=== PATIENT | male | born 1985 | race Caucasian/White ===

== ENCOUNTER 2019-05-16 01:00 | Emergency (ER) | payer BC, SELFPAY ==
[2019-05-16 01:22] LABS: #Eosinphils 0.2 thou/uL (0.0-0.7); #Lymphocytes 4.2 thou/uL (1.20-3.40); #Monocytes 0.5 thou/uL (0.11-0.59); #Neutrophils 3.9 thou/uL (1.40-6.50); %Basophils 0.5 % (0.0-1.0); %Eosinophils 2.3 % (0.0-10.0); %Lymphocytes 47.3 % (21.0-51.0); %Monocytes 5.3 % (0.0-10.0); %Neutrophils 44.7 % (42.0-75.0); Hemoglobin 14.9 g/dL (14.0-18.0); Mean Corpuscular HGB CONC 32.7 g/dL (32.0-36.0); Mean Corpuscular Hemoglobin 28.4 pg (27.0-31.0); Mean Corpuscular Volume 87.1 fL (78.0-98.0); Mean Platelet Volume 11.2 fL (7.4-10.4); Platelet Count 159 thou/uL (130-400); RBC Distribution Width 11.6 % (11.5-14.5); Red Blood Cell (RBC) Count 5.24 mill/uL (4.70-6.10); White Blood Cell (WBC) Count 8.8 thou/uL (4.8-10.8)
[2019-05-16 01:42] LABS: ALT (SGPT) 26 U/L (8-55); AST (SGOT) 20 U/L (5-34); Albumin 4.5 g/dL (3.5-5.0); Alkaline Phosphatase 52 U/L (40-150); Anion Gap 15 mmol/L (10-20); BUN (Urea Nitrogen) 17 mg/dL (8.9-20.6); Bilirubin, Total 0.2 mg/dL (0.2-1.2); Calc. Creatinine Clearance 0 mL/min (70-130); Calcium 9.5 mg/dL (7.8-10.44); Carbon Dioxide 23 mmol/L (22-29); Chloride 104 mmol/L (98-107); Estimated GFR-MDRD 71; Globulin 3.1 g/dL (2.4-3.5); Glucose 133 mg/dL (70-105); Potassium 3.8 mmol/L (3.5-5.1); Protein, Total 7.6 g/dL (6.0-8.3); Sodium 138 mmol/L (136-145)
[2019-05-16] MEDS ORDERED: Acetaminophen 500 MG TAB ONE (02:01)
[2019-05-16] MEDS ORDERED: Ketorolac Tromethamine 30 MG/ML VIAL ONE (02:01)
[2019-05-16 02:15] LABS: Bilirubin Negative (Negative); Blood, Urine Moderate (Negative); Clarity Clear (Clear); Glucose, Urine (Dipstick) Negative (Negative); Leukocyte Negative (Negative); Nitrite Negative (Negative); Protein, Urine (Dipstick) Trace mg/dL (Neg-Trace); Urobilinogen 0.2 mg/dL (Less than 2)
[2019-05-16 02:17] LABS: Bacteria/HPF None Seen HPF (None Seen); Squamous Epithelial 0-3 HPF (0-3); WBC/HPF 0-3 HPF (0-3)
--- NOTE | 2019-05-16 09:01 | CT ---
PRELIMINARY REPORT/[facility]/EMERGENCY AFTER HOURS PROCEDURE: EXAM: CT Abdomen and Pelvis Without Contrast EXAM DATE/TIME: 05/16/2019 1:36 AM CLINICAL HISTORY: 33 years old, male; Abdominal pain; Flank; Right lower quadrant (rlq); Patient HX: Rlq pain x 1 month TECHNIQUE: Imaging protocol: Axial computed tomography images of the abdomen and pelvis without contrast. Alberts l and sagittal reformatted images were created and reviewed. Radiation optimization: All CT scans at this facility use at least one of these dose optimization techniques: automated exposure control; mA and/or kV adjustment per patient size (includes targeted exams where dose is matched to clinical indication); or iterative reconstruction. COMPARISON: No relevant prior studies available. FINDINGS: Liver: Normal. Gallbladder and bile ducts: Normal Pancreas: Normal. Spleen: Normal. Adrenals: Normal. Kidneys and ureters: Right hydronephrosis, with obstructive 4 mm calculus within the right proximal u reter (series 2, image 51). Stomach and bowel: Normal. Appendix: Appendix normal. Intraperitoneal space: Normal. No free air. No significant fluid collection. Vasculature: Phleboliths within the pelvis. Lymph nodes: Normal. No enlarged lymph nodes. Bladder: Unremarkable as visualized. Reproductive: Unremarkable as visualized. Bones/joints: No acute abnormality. Soft tissues: Normal. IMPRESSION: Right hydronephrosis, with obstructive 4 mm calculus within the right proximal ureter (series 2, imag e 51). Thank you for allowing us to participate in the care of your patient. Dictated and Authenticated by: Stepan Yao MD 05/16/2019 3:11 AM Central Time ([place] & [place]) FINAL REPORT ABDOMEN CT WITH CONTRAST PELVIC CT WITH CONTRAST: Date: 05/16/19 HISTORY: Right flank pain, x1 month. Intermittent pain. COMPARISON: None. FINDINGS: Grossly no solid organ abnormality. Limited evaluation of the alimentary canal. No evidence of bowel obstruction. Normal caliber appendix. Mild right-sided obstructive uropathy secondary to a 3 mm calculus in the mid right ureter. No eviden ce of left-sided obstructive uropathy. IMPRESSION: This report is in agreement with the preliminary report by Em[facility]. Mild right-sided obstructive uropath y secondary to a solitary calculus in the proximal right ureter measuring approximately 3 mm. POS: [facility]
== END 2019-05-16 02:30 | disposition home or self-care (01) ==
LOC: NAV ERS 01:00
DX: N20.0 Calculus of kidney (principal)
CPT/HCPCS: 36415; 74176; 80053; 81003; 81015; 85025; 87086; 96361; 96374; J1885

== ENCOUNTER 2019-07-21 02:31 | Emergency (ER) | payer BC ==
[2019-07-21] MEDS ORDERED: Ketorolac Tromethamine 30 MG/ML VIAL ONE (02:48)
[2019-07-21] MEDS ORDERED: Ondansetron PF 4 MG/2 ML Vial ONE (02:48)
[2019-07-21] MEDS ORDERED: Sodium Chloride 0.9% 1,000 ML ONE (02:48)
[2019-07-21 03:08] LABS: Band 3 % (5-11); Eosinophils 2 % (0-10); Hemoglobin 15.4 g/dL (14.0-18.0); Lymphocytes 55 % (21-51); MDiff Complete? YES; Mean Corpuscular HGB CONC 32.7 g/dL (32.0-36.0); Mean Corpuscular Hemoglobin 28.2 pg (27.0-31.0); Mean Corpuscular Volume 86.1 fL (78.0-98.0); Mean Platelet Volume 9.5 fL (7.4-10.4); Monocytes 4 % (0-10); Neutrophil 34 % (42-75); Platelet Count 143 thou/uL (130-400); Platelet Morphology Comment Appears Adequate; RBC Distribution Width 11.3 % (11.5-14.5); RBC Morphology Normal; Reactive Lymphocytes 2 % (0-10); Red Blood Cell (RBC) Count 5.47 mill/uL (4.70-6.10)
[2019-07-21 03:14] LABS: ALT (SGPT) 32 U/L (8-55); AST (SGOT) 21 U/L (5-34); Albumin 4.6 g/dL (3.5-5.0); Alkaline Phosphatase 45 U/L (40-110); Anion Gap 16 mmol/L (10-20); BUN (Urea Nitrogen) 14 mg/dL (8.9-20.6); Bilirubin, Total 0.2 mg/dL (0.2-1.2); Calc. Creatinine Clearance 0 mL/min (70-130); Calcium 9.5 mg/dL (7.8-10.44); Carbon Dioxide 25 mmol/L (22-29); Chloride 103 mmol/L (98-107); Estimated GFR-MDRD 84; Globulin 2.8 g/dL (2.4-3.5); Glucose 107 mg/dL (70-105); Potassium 3.8 mmol/L (3.5-5.1); Protein, Total 7.4 g/dL (6.0-8.3); Sodium 140 mmol/L (136-145)
[2019-07-21] MEDS ORDERED: Promethazine HCl 25 MG/ML VIAL ONE (03:41)
[2019-07-21] MEDS ORDERED: Bisacodyl 10 MG SUPP ONE (03:41)
[2019-07-21] MEDS ORDERED: Sodium Chloride 0.9% 0 ML ONE (03:47)
[2019-07-21 03:56] LABS: Bilirubin Negative (Negative); Blood, Urine Large (Negative); Clarity Clear (Clear); Glucose, Urine (Dipstick) Negative (Negative); Leukocyte Negative (Negative); Nitrite Negative (Negative); Protein, Urine (Dipstick) 100 mg/dL (Neg-Trace); Urobilinogen 0.2 mg/dL (Less than 2)
[2019-07-21 03:58] LABS: RBC/HPF 21-50 HPF (0-3); WBC/HPF 0-3 HPF (0-3)
[2019-07-21 03:59] LABS: Bacteria/HPF Rare-Few HPF (None Seen); Squamous Epithelial None Seen HPF (0-3)
[2019-07-21] MEDS ORDERED: Sodium Chloride 0.9% 250 ML 250 ML ONE (04:04)
--- NOTE | 2019-07-21 08:55 | RAD ---
RADIOGRAPH CHEST 1 VIEW RADIOGRAPH ABDOMEN 2 VIEWS: HISTORY: A 33-year-old male with abdominal pain. FINDINGS: There are no air space densities or pulmonary edema. The lateral costophrenic angles are sharp. There is no cardiomegaly. There is no evidence of pneumothorax or pneumoperitoneum. There is no evidence of dilated small bowel loops, differential air/fluid levels, or organomegaly. IMPRESSION: 1) No acute cardiopulmonary findings. 2) No evidence of bowel obstruction. jn [] POS: [facility]
== END 2019-07-21 05:34 | disposition home or self-care (01) ==
LOC: NAV ERS 02:31
DX: K59.00 Constipation, unspecified (principal); N20.0 Calculus of kidney; E78.5 Hyperlipidemia, unspecified; E78.00 Pure hypercholesterolemia, unspecified; F17.210 Nicotine dependence, cigarettes, uncomplicated; Z79.899 Other long term (current) drug therapy
CPT/HCPCS: 74022; 80053; 81003; 81015; 85025; J1885; J2405; J2550; J3490; J7050

== ENCOUNTER 2019-07-21 10:50 | Emergency (ER) | payer BC ==
[~2019-07-21 10:50] MED LIST: Iopamidol 370 76% 100 ML VIAL ONE
[2019-07-21] MEDS ORDERED: Ondansetron PF 4 MG/2 ML Vial ONE (11:19)
[2019-07-21] MEDS ORDERED: Morphine 4 MG/ML VIAL ONE (11:19)
[2019-07-21] MEDS ORDERED: Sodium Chloride 0.9% 1,000 ML ONE ×2 (11:30→13:25)
[2019-07-21 11:39] LABS: #Basophils 0.1 thou/uL (0.0-0.2); #Eosinphils 0.1 thou/uL (0.0-0.7); #Lymphocytes 2.2 thou/uL (1.20-3.40); #Monocytes 0.7 thou/uL (0.11-0.59); #Neutrophils 8.4 thou/uL (1.40-6.50); %Basophils 0.5 % (0.0-1.0); %Eosinophils 0.6 % (0.0-10.0); %Lymphocytes 19.1 % (21.0-51.0); %Monocytes 6.2 % (0.0-10.0); %Neutrophils 73.6 % (42.0-75.0); Mean Corpuscular Hemoglobin 28.3 pg (27.0-31.0); Mean Corpuscular Volume 85.8 fL (78.0-98.0); Mean Platelet Volume 10.9 fL (7.4-10.4); Platelet Count 146 thou/uL (130-400); RBC Distribution Width 11.2 % (11.5-14.5); Red Blood Cell (RBC) Count 5.28 mill/uL (4.70-6.10); White Blood Cell (WBC) Count 11.4 thou/uL (4.8-10.8)
[2019-07-21 11:55] LABS: Anion Gap 16 mmol/L (10-20); Globulin 2.5 g/dL (2.4-3.5)
[2019-07-21 12:08] LABS: ALT (SGPT) 27 U/L (8-55); AST (SGOT) 20 U/L (5-34); Albumin 4.2 g/dL (3.5-5.0); Alkaline Phosphatase 45 U/L (40-110); BUN (Urea Nitrogen) 15 mg/dL (8.9-20.6); Bilirubin, Total 0.4 mg/dL (0.2-1.2); Calc. Creatinine Clearance 0 mL/min (70-130); Calcium 8.9 mg/dL (7.8-10.44); Carbon Dioxide 23 mmol/L (22-29); Chloride 104 mmol/L (98-107); Estimated GFR-MDRD 60; Glucose 99 mg/dL (70-105); Lipase 29 U/L (8-78); Potassium 4.1 mmol/L (3.5-5.1); Protein, Total 6.7 g/dL (6.0-8.3); Sodium 139 mmol/L (136-145)
--- NOTE | 2019-07-21 12:32 | CT ---
CT ABDOMEN AND PELVIS WITH IV CONTRAST: INDICATIONS: Abdominal pain. COMPARISON: Recent CT of 06/02/2019, which revealed a small calculus in the right ureter. FINDINGS: The lung bases are clear. The liver, spleen and pancreas are unremarkable. The adrenal glands are normal. There is right hydronephrosis with right perinephric stranding and edema. The previously noted 3 to 4 mm calculus in the mid right ureter now resides at the right UVJ, producing moderately severe obstru ctive changes. The left kidney and left collecting structures are unremarkable. The urinary bladder is contracted. Small bowel loops are of normal caliber. The appendix appears normal. IMPRESSION: A 3 to 4 mm obstructing calculus at the right ureterovesicular junction, producing moderately severe obstructive change on the right with right hydronephrosis and right perinephric stranding and edema. POS: [facility]
[2019-07-21 12:45] LABS: Bilirubin Negative (Negative); Blood, Urine Trace (Negative); Clarity Clear (Clear); Glucose, Urine (Dipstick) Negative (Negative); Leukocyte Negative (Negative); Nitrite Negative (Negative); Protein, Urine (Dipstick) Negative (Neg-Trace); Urobilinogen 0.2 mg/dL (Less than 2)
[2019-07-21] MEDS ORDERED: Ketorolac Tromethamine 30 MG/ML VIAL ONE (13:25)
== END 2019-07-21 14:58 | disposition home or self-care (01) ==
LOC: NAV ERS 10:50
DX: N13.2 Hydronephrosis with renal and ureteral calculous obstruction (principal); E86.0 Dehydration; E78.5 Hyperlipidemia, unspecified; E78.00 Pure hypercholesterolemia, unspecified; F17.210 Nicotine dependence, cigarettes, uncomplicated; R11.2 Nausea with vomiting, unspecified
CPT/HCPCS: 74022; 74177; 80053; 81003; 81015; 83690; 85025; 96361; 96365; 96375; J1885; J2270; J2405; J2550; J3490; J7050; Q9967